=== PATIENT | male | born 1950 | race Caucasian/White ===

== ENCOUNTER → 2021-09-18 | Day surgery (SDC) | payer OTHER ==
[~2021-09-18] VITALS: Ht 180.3 cm; Wt 113.4 kg
[~2021-09-18] MED LIST: BETIMOL5 ML EYERT; COZAAR50 MG PO; FLUTICASONE PO; LANTUS100 UNIT/1 SC; LOPID600 MG PO; LOPRESSOR50 MG PO; METFORMIN HCL500 MG PO; NOVOLOG VI100 UNIT/1 SC; PRILOSEC20 MG PO; VENTOLIN HFA IN18 GM INH; VITAMIN B-121000 MC1 PO
== END | disposition home or self-care (01) ==
LOC: FAS 08:03
DX: Z12.11 Encounter for screening for malignant neoplasm of colon (principal); D12.5 Benign neoplasm of sigmoid colon; K57.30 Diverticulosis of large intestine without perforation or abscess without bleeding; I10 Essential (primary) hypertension; E11.9 Type 2 diabetes mellitus without complications; E78.5 Hyperlipidemia, unspecified; I25.10 Atherosclerotic heart disease of native coronary artery without angina pectoris; J44.9 Chronic obstructive pulmonary disease, unspecified; K21.9 Gastro-esophageal reflux disease without esophagitis; G47.30 Sleep apnea, unspecified; Z79.4 Long term (current) use of insulin; Z79.899 Other long term (current) drug therapy; Z88.1 Allergy status to other antibiotic agents; Z88.8 Allergy status to other drugs, medicaments and biological substances; Z80.0 Family history of malignant neoplasm of digestive organs
CPT/HCPCS: J2250; J2704; J7120